=== PATIENT | male | born 1990 | race Two or more races ===

== ENCOUNTER 2017-11-01 02:08 | Emergency (ER) | payer SELFPAY ==
[~2017-11-01] VITALS: Ht 180.3 cm; Wt 86.2 kg
[2017-11-01 02:10] VITALS: BP 146/76
== END 2017-11-01 03:45 | disposition home or self-care (01) ==
LOC: ER 02:11
DX: S83.8X1A Sprain of other specified parts of right knee, initial encounter (principal); G47.00 Insomnia, unspecified; W01.0XXA Fall on same level from slipping, tripping and stumbling without subsequent striking against object, initial encounter; Y93.89 Activity, other specified; Y92.89 Other specified places as the place of occurrence of the external cause; Y99.8 Other external cause status
CPT/HCPCS: 73564-TC; A4606; Z7610

== ENCOUNTER 2020-01-16 06:53 | Emergency (ER) | payer BC, MEDICAID ==
[~2020-01-16] VITALS: Ht 180.3 cm; Wt 90.7 kg
[2020-01-16 06:56] VITALS: BP 131/84
== END 2020-01-16 07:06 | disposition home or self-care (01) ==
LOC: ER 06:53
DX: F15.10 Other stimulant abuse, uncomplicated (principal); F25.9 Schizoaffective disorder, unspecified; G47.00 Insomnia, unspecified